=== PATIENT | male | born 1990 | race Caucasian/White ===

== ENCOUNTER 2017-08-27 18:08 | Emergency (ER) | payer OTHER ==
[~2017-08-27] VITALS: Ht 170.2 cm; Wt 99.8 kg
[2017-08-27 18:20] VITALS: BP_SYST 151
--- NOTE | 2017-08-27 18:23 | NUR ---
Patient triaged and placed in waiting room. VSS and patient appears in no acute distress at this time. Accompanied by FRIEND, awaiting available bed, and MD notified of need for MSE.
--- NOTE | 2017-08-27 19:24 | NUR ---
Patient to ER bed 4 to gown for evaluation. Side rails up. Report given to Cynthia TAPIA.
--- NOTE | 2017-08-27 19:26 | NUR ---
WARD Cheung at bedside for medical evaluation.
--- NOTE | 2017-08-27 19:28 | NUR ---
Patient AOx4, ambulatory, presents to ER with complaint of nasal congestion and runny nose x2 days. Patient states no fever or chills. No other symptoms or complaints at this time.
[2017-08-27] MEDS ORDERED: AMOXICILLIN/CLAVULANATE POTASSIUM 875 MG TABLET PO ONE (19:30)
--- NOTE | 2017-08-27 20:09 | NUR ---
No adverse reactions noted after medication administration. Will continue to monitor.
[2017-08-27 20:10] VITALS: BP_SYST 148
--- NOTE | 2017-08-27 20:10 | NUR ---
Patient given written and verbal discharge instructions and verbalizes understanding. ER MD discussed with patient the results and treatment provided. Patient in stable condition. ID arm band removed. Rx of Augmentin, Prednisone, Fluticasone, and Motrin given. Patient educated on pain management and to follow up with PMD. Pain Scale 2/10 tolerable to patient. Opportunity for questions provided and answered.
== END 2017-08-27 20:10 | disposition home or self-care (01) ==
LOC: SED 18:08
DX: J01.90 Acute sinusitis, unspecified (principal); R03.0 Elevated blood-pressure reading, without diagnosis of hypertension; J45.909 Unspecified asthma, uncomplicated
CPT/HCPCS: 99283